=== PATIENT | male | born 1950 | race Caucasian/White ===

== ENCOUNTER 2023-11-25 23:27 | Observation (INO) ==
[2023-11-26] MEDS: NS 0.9% 1000 ml BAG 1,000 ML IV ONE (00:36)
[2023-11-26] MEDS: Morphine 4 MG/ML VIAL (1 ml) IV ONE (00:51)
[2023-11-26 00:52] LABS: ABS Basophils 0.1 10^3/uL (0.0-0.1); ABS Eosinophils 0.3 10^3/uL (0.0-0.5); ABS Lymphocytes 1.5 10^3/uL (1.0-4.8); ABS Monocytes 0.8 10^3/uL (0.0-1.1); Eosinophil % 3.4 %; Hematocrit 39.7 % (38-53); Hemoglobin 13.4 g/dL (13.2-16.3); Lymphocyte % 19.9 %; Mean Corpuscular Hemoglobin 28.2 pg (27-33); Mean Corpuscular Hgb Conc 33.8 g/dL (31-36); Mean Corpuscular Volume 83.6 fL (80-97); Mean Platelet Volume 9.6 fL (7.5-11.2); Platelet Count 187 10^3/uL (150-450); Red Blood Count 4.75 10^6/uL (4.06-5.63); Red Cell Distribution Width 14.1 % (12-17); White Blood Count 7.7 10^3/uL (3.6-10.2)
[2023-11-26 01:19] LABS: Albumin/Globulin Ratio 1.2 (1-3); C Reactive Protein 3.11 mg/L (<8.01); Calcium 9.9 mg/dL (8.6-10.3); Creatinine, Serum 1.26 mg/dL (0.67-1.17); Globulin 3.3 g/dL (2-4); Potassium 4.2 mmol/L (3.5-5.0); Total Bilirubin 0.6 mg/dL (0.2-1.0); Total Protein 7.3 g/dL (6.4-8.9); eGFR CKD-EPI 59.8 (>60)
[2023-11-26] MEDS ORDERED: cefTRIAXone 2 GM ADDV.VIAL 2 GM in NS 0.9% 100 ml BAG 100 ML IV ONE (01:34)
[2023-11-26] MEDS: cefTRIAXone 2 gm/50 mL D5W 2 GM/50 ML BAG IV ONE (02:29)
[2023-11-26 02:58] LABS: Urine Appearance Clear; Urine Bilirubin Negative (Negative); Urine Blood Trace (Negative); Urine Color Light-Yellow; Urine Glucose Negative (Negative); Urine Ketones Negative (Negative); Urine Nitrite Negative (Negative); Urine Protein Negative (Negative); Urine Specific Gravity 1.016 (1.002-1.030); Urine Urobilinogen Negative (Negative)
[2023-11-26 10:04] LABS: Hematocrit 39.1 % (38-53); Hemoglobin 13.4 g/dL (13.2-16.3); Mean Corpuscular Hemoglobin 28.8 pg (27-33); Mean Corpuscular Hgb Conc 34.2 g/dL (31-36); Mean Corpuscular Volume 84.1 fL (80-97); Mean Platelet Volume 9.6 fL (7.5-11.2); Platelet Count 185 10^3/uL (150-450); Red Blood Count 4.65 10^6/uL (4.06-5.63); Red Cell Distribution Width 14.2 % (12-17); White Blood Count 8.6 10^3/uL (3.6-10.2)
[2023-11-26 10:48] LABS: Calcium 9.6 mg/dL (8.6-10.3); Creatinine, Serum 1.06 mg/dL (0.67-1.17); Magnesium 1.5 mg/dL (1.9-2.7); eGFR CKD-EPI 73.6 (>60)
[2023-11-26] MEDS ORDERED: Lactated Ringers 1000 ml BAG 1,000 ML IV SCH (11:00)
[2023-11-26] MEDS ORDERED: Magnesium Sulf 4 GM/100 ML IV 4,000 MG/100 ML BAG IVPB ONE (11:13)
[2023-11-26] MEDS ORDERED: fentaNYL 100 mcg/2 ml 50 MCG/ML VIAL ONE (12:18)
[2023-11-26] MEDS ORDERED: Propofol 10 MG/ML 20 ML BTL ONE ×2 (12:18→13:25)
[2023-11-26] MEDS ORDERED: Lidocaine 2% PF 5 ML VIAL ONE (12:21)
[2023-11-26] MEDS ORDERED: Lidocaine 2% JELLY 10 ML JELLY ONE (13:23)
[2023-11-26] MEDS ORDERED: Naloxone 0.4 mg VIAL 0.4 mg/ml 1 ml VIAL IV PRN ×2 (13:51→13:53)
[2023-11-26] MEDS ORDERED: Acetaminophen IV 1 GM/100ML 1,000 MG/100 ML BAG IV ONE (15:24)
[2023-11-26] MEDS ORDERED: Ondansetron 4 mg VIAL 2 MG/ML 2 ml VIAL ONE (15:24)
[2023-11-26] MEDS: Ondansetron 4 mg VIAL 2 MG/ML 2 ml VIAL IV PRN (15:26)
[2023-11-26] MEDS: Acetaminophen IV 1 GM/100ML 1,000 MG/100 ML BAG IV PRN (15:27)
[2023-11-26 17:08] VITALS: BP 162/91
== END 2023-11-26 17:08 | disposition home or self-care (01) ==
LOC: ED 23:27 → EDHOLD 23:27 → SUATTDRO 11-26 04:31 → EDHOLD 11-26 11:08 → AA 11-26 15:43
PROVIDERS: ADMIT Internal Medicine; ATTEND Student in an Organized Health Care Education/Training Program